=== PATIENT | female | born 2005 | race Two or more races ===

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

== ENCOUNTER 2024-01-18 18:08 | Emergency (ER) | payer BC, SELFPAY ==
[2024-01-18 18:15] VITALS: BP 105/64; PULSE 93; TEMP 36.5; O2SAT 96; BMI 22.3
--- OUTSIDE RECORDS SUMMARY | 2024-01-18 18:25 | XMS_ITS | CCD ---
Author Organization [facility] Care Team Providers Care Roll Contour Grinder Name Role Phone Shani Stern Unavailable Ami Mike Unavailable Lynne Pierson Attending Unavailable Lynne Pierson Admitting Unavailable Rivera Lawrence Primary Care Unavailable DO Rivera Lawrence Primary Care Provider NGUYEN Pierson Attending Provider Medications Current Medications Medication Drug Class(es) Dates Sig (Normalized) Sig (Original) amoxicillin 875 mg / clavulanate 125 mg oral tablet (2 sources) Penicillin-class Antibacterial Start: 01-16-2024 take 1 tablet by mouth every twelve hours Amoxicillin-Pot Clavulanate Active 1 TAB PO Every 12 hours 07 05January 16, 2024 12:00am brompheniramine maleate 0.4 mg/ml / dextromethorphan hydrobromide 2 mg/ml / pseudoephedrine hydrochloride 6 mg/ml oral solution (1 source) alpha-Adrenergic Agonist, Uncompetitive O-gjuqkz-J-aspartate Receptor Antagonist, Sigma-1 Agonist Start: 08-06-2022 take 10 mL by mouth every six hours Pseudoeph-Bromph en-DM 30-2-10 MG/5ML 10 mL Orally every 6 hours for 5 days Jul, Active fluticasone propionate 0.05 mg/actuat metered dose nasal spray (1 source) Corticosteroid Start: 08-06-2022 take 1 spray(s) nasal route once daily Flonase Allergy Relief 50 MCG/ACT 1 spray in each nostril Nasally Once a day for 14 day(s) Jul, Active polymyxin b 36542 unt/ml / trimethoprim 1 mg/ml ophthalmic solution (1 source) Dihydrofolate Reductase Inhibitor Antibacterial, Polymyxin-class Antibacterial Start: 08-06-2022 take 1 drop(s) into the eye(s) four times daily Polymyxin B-Trimethoprim 46514-0.1 UNIT/ML 1 drop into affected eye Ophthalmic Four times a day for 5 day(s) Jul, Active Problems Active Problems Problem Classification Problem Date Documented Date Episodic/Chronic Inflammation; infection of eye (except that caused by tuberculosis or sexually transmitteddisease) (1 source) Unspecified acute conjunctivitis, bilateral Episodic Other upper respiratory infections (3 sources) Streptococcal sore throat; Translations: [Strep pharyngitis] Episodic Skin and subcutaneous tissue infections (3 sources) Cutaneous abscess of left lower limb; Translations: [Abscess of left thigh] Onset: 01-16-2024 01-16-2024 Episodic Past or Other Problems Problem Classification Problem Date Documented Date Episodic/Chronic Administrative/social admission (1 source) Encounter for examination for participation in sport Onset: 01-27-2022 Resolved: 01-27-2022 Episodic Results Test Name Value Interpretation Reference Range Facil ity Gram Stainon 01-16-2024 Microscopic observation Gram stain Nom (Unsp spec) Gram Stain Result 1+ Gram Positive Cocci Rare White Blood Cells PERFORMED BY: [place] [address] PATHOLOGIST [facility] IGOR ELDRIDGE M.D. Normal [facility] Comment on above: Performed By: #### G S #### [address] Gram stain for investigation of transfusion reactionOrdered By: Lynne Pierson on 01-16-2024 Microscopic observation Gram stain Nom (Unsp spec) [facility] Vital Signs Date Time Vital Sign Value Performing Clinician Facility 01-16-2024 09:46-0400 Body height 157.48 cm [facility] 01-16-2024 09:46-0400 Body mass index (BMI) [Percentile] Per age and sex 58.9 % [facility] 01-16-2024 09:46-0400 Body mass index (BMI) [Ratio] 22.4 kg/m2 [facility] 01-16-2024 09:46-0400 Body temperature 98.2 [degF] [facility] 01-16-2024 09:46-0400 Body weight 55.48 kg [facility] 01-16-2024 09:46-0400 Diastolic blood pressure 71 mm[Hg] [facility] 01-16-2024 09:46-0400 Heart rate 90 /min [facility] 01-16-2024 09:46-0400 Respiratory rate 16 /min [facility] 01-16-2024 09:46-0400 SaO2% (BldA) [Mass fraction] 98 % [facility] 01-16-2024 09:46-0400 Systolic blood pressure 102 mm[Hg] [facility] 08-06-2022 16:55-0500 Body height 158.75 cm Ami Mike Other [facility] [place] Other 08-06-2022 16:55-0500 Body mass index (BMI) [Ratio] 22.1 kg/m2 Ami Mike Other [facility] [place] Other 08-06-2022 16:55-0500 Body temperature 97.7 [degF] Ami Mike Other [place] Other 08-06-2022 16:55-0500 Body weight 55.7 kg Ami Mike Other [facility] Other 08-06-2022 16:55-0500 Diastolic blood pressure 66 mm[Hg] Ami Mike Other [facility] Other 08-06-2022 16:55-0500 Respiratory rate 18 /min Ami Mike Other [facility] Other 08-06-2022 16:55-0500 SaO2% (BldA) [Mass fraction] 98 % Ami Mike Other [facility] Other 08-06-2022 16:55-0500 Systolic blood pressure 108 mm[Hg] Ami Mike Other [facility] Other 01-27-2022 16:20-0400 Body height 158.75 cm Shani Stern Other [facility] Other 01-27-2022 16:20-0400 Body mass index (BMI) [Ratio] 20.34 kg/m2 Shani Stern Other [facility] Other 01-27-2022 16:20-0400 Body temperature 98.5 [degF] Shani Stern Other [facility] Other 01-27-2022 16:20-0400 Body weight 51.26 kg Shani Stern Other [facility] Other 01-27-2022 16:20-0400 Diastolic blood pressure 67 mm[Hg] Shani Stern Other [facility] Other 01-27-2022 16:20-0400 Systolic blood pressure 107 mm[Hg] Shani Stern Other [facility] Other Encounters Encounter Date Encounter Type Care Provider Facility Start: 01-16-2024 End: 01-16-2024 Departed Referred DO Rivera Lawrence Work Phone: [facility] [place] Work Phone: Start: 01-16-2024 End: 01-16-2024 ambulatory Lynne Pierson [facility] Work Phone: Start: 01-16-2024 End: 01-16-2024 Patient encounter procedure [facility] [place] Work Phone: Start: 08-06-2022 End: 08-06-2022 ambulatory Ami Mike Other [facility] Other Start: 08-06-2022 Office outpatient vi sit 25 minutes Ami Mike [facility] Start: 01-27-2022 End: 01-27-2022 ambulatory Shani Leena Other [facility] [place] Other Start: 01-27-2022 Office outpatient vi sit 15 minutes Shani Leena [facility] Procedures Date Procedure Procedure Detail Performing Clinician Start: 01-16-2024 Investigation of transfusion reaction DO Rivera Lawrence Work Phone: Plan of Treatment Date Care Activity Detail Author Start: 01-17-2024 [facility] Bacteria identified in Unspecified specimen by Aerobe culture [facility] Bacteria identified in Unspecified specimen by Anaerobe culture [facility] Payers Date Payer Category Payer [facility] [id number] 2024 Self-pay [id number] Unknown [id number] [id number] [id number] Unknown [id number] Social History Date Type Detail Facility Unknown if ever smoked [facility] Other Sex Assigned At Sex Assigned At Bir th [facility] Other Start: 01-16-2024 Tobacco smoking status NHIS Never smoked tobacco (finding) [facility] Start: 2005 Sex Assigned At Female F [facility] Evaluation note 08-06-2022 Note Date & Type Note Facility 08-06-2022 Evaluation note Encounter Date Diagnosis Assessment Notes Jul, Acute bacterial conjunctivitis of both eyes (ICD-10 - H10.33) Discussed diagnosis with mother. Instructed mother to administer eye drops as prescribed, discussed proper administration. Advised mother patient is contagious until after 24 hours on antibiotic eye drops. Advised good hand hygiene and infection control, wash linens and bedding, do not touch eye directly with eye drop bottle, wipe off bottle after every use, do not share eye drop bottles. Apply cool compress to eye several times a day, clean eye with warm, moist cloth from inner to outer canthus. Eye symptoms should improve in 2-3 days with treatment, if no improvement follow up with PCP or eye doctor. Immediate eval if symptoms worsen, eye pain, vision changes, redness and swelling occur around the eye, headache, fever, N/V or any other concerning symptoms. Patient's mother verbalizes understanding and is agreeable to treatment plan Jul, Viral URI with cough (ICD-10 - J06.9) No testing performed today in office. Advised mother that will treat as viral URI. Supportive care as directed, increase fluids and rest, Tylenol/Motrin as directed, Bromfed as directed, rx of Flonase, cool mist humidifier, throat lozenges. Discussed infection control practices such as good hand washing and mask wearing. Patient to follow up with PCP if symptoms persist or worsen despite treatment. Immediate eval for SOB, difficulty, chest pain, fevers that do not break with antipyretic or any other concerning symptoms as reviewed on patient education handout. Mother verbalizes understanding and is agreeable to treatment plan. Patient left in stable condition [facility] Other Evaluation note 01-27-2022 Note Date & Type Note Facility 01-27-2022 Evaluation note Encounter Date Diagnosis Assessment Notes Jan, Sports physical (ICD-10 - Z02.5) [facility] Other Evaluation note Note Date & Type Note Facility Evaluation note No assessment information availa ble [facility] Work Phone: Evaluation note Note Date & Type Note Facility Evaluation note Diagnosis Onset Date Abscess of left thigh acute [facility] Work Phone: History general Narrative - Reported Note Date & Type Note Facility History general Narrative - Reported Type Medical History Broke right leg [facility] Other Chief Complaint and Reason for Visit Chief Complaint Abscess on back of l eft leg Chief Complaint Abscess on back of l eft leg L02.416 Reason for Visit Abscess of left thig h Advance Directives Advance Directive Response Recorded Date/ Time Advance Directives No April 23, 2017 7:36pm Summary Purpose Family History No Family History Records Found Additional Source Comments REASON FOR VISIT (unrecogniz ed section and content) [employer] PINK EYE H/A SORE THROAT CONGESTION Care Teams (unrecognized sec tion and content) Team Status: Active Member Role Status Dates Rivera Lawrence DO Primary Care Provider Active Team Status: Inactive Member Role Status Dates Rivera Lawrence DO Primary Care Provider Active Sta rt: January 16, 2024 End: January 16, 2024 Lynne Pierson APRN Attending Provider Active Start: January 16, 2024 End: January 16, 2024 Goals (unrecognized section and content) Goals may be documented in a n alternate section INFORMATION SOURCE (unrecogn ized section and content) DATE CREATED AUTHOR 01/17/2024 [facility] FOR RECORDS PERTAINING TO PATIENTS WHO ARE OR HAVE BEEN ENROLLED IN A CHEMICAL DEPENDENCY/SUBSTANCEABUSE PROGRAM, SOME INFORMATION MAY BE OMITTED. This clinical summary was aggregated from multiple sources. Caution should be exercised in using it in the provision of clinical care. This summary normalizes information from multiple sources, and as a consequence, information in this document may materially change the coding, format and clinical context of patient data. In addition, data may be omitted in some cases. CLINICAL DECISIONS SHOULD BE BASED ON THE PRIMARY CLINICAL RECORDS. [facility]. provides no warranty or guarantee of the accuracy or completeness of information in this document.
--- NOTE | 2024-01-18 18:31 | ED.SKABFB1 ---
HPI - Skin/Abscess/Foreign Bdy General Chief complaint: Skin/Abscess/Foreign Body Stated complaint: Abscess of foot Time Seen by Provider: 01/18/24 18:13 Source: patient Mode of arrival: walk-in History of Present Illness HPI narrative: Patient is a 18-year-old female who presents to the emergency Room for the evaluation of redness and swelling to the left left posterior thigh. She was seen at urgent care 2 days ago for this, she had an incision and drainage performed, culture obtained and was placed on Augmentin. She was not given any pain medications. She presents to the ER today with concern that the area is still red and swollen, she has had an increase in purulent drainage from the area and she was not sure if that was normal. She has had no fevers, vomiting. No concern for . Related Data Home Medications ?Medication ?Instructions ?Recorded ?Confirmed amoxicillin 875 mg-potassium tab 01/18/24 clavulanate 125 mg tablet Previous Rx's ?Medication ?Instructions ?Recorded cephalexin 500 mg capsule 500 mg PO Q8H 10 days #30 caps 01/18/24 hydrocodone 5 mg-acetaminophen 325 1 tab PO Q6H PRN pain 3 days #12 01/18/24 mg tablet tabs ketorolac 10 mg tablet 10 mg PO TID PRN pain #10 tabs 01/18/24 ondansetron 4 mg disintegrating 4 mg PO Q6H PRN nausea and 01/18/24 tablet vomiting #12 tabs sulfamethoxazole 800 1 tab PO BID 10 days #20 tabs 01/18/24 mg-trimethoprim 160 mg tablet (Bactrim DS) Allergies Allergy/AdvReac Type Severity Reaction Status Date / Time No Known Drug Allergies Allergy Verified 01/18/24 18:19 Review of Systems ROS Constitutional Denies: fever or chills Ears, nose, mouth, and throat Denies: throat pain or nasal congestion Respiratory Denies: shortness of breath Gastrointestinal Denies: abdominal pain, nausea or vomiting Integumentary/Breast Reports: skin pain, skin tenderness and skin swelling; Denies: rash Hematologic/Lymphatic Denies: easy bruising or easy bleeding Exam Narrative Exam Narrative: Gen.: Awake, alert, in no distress Head: Normocephalic, atraumatic ENT: Moist mucous membranes Respiratory: No respiratory distress Extremities: Moves extremities equally Psych: Normal mood and affect Neuro: No focal neuro deficit Skin: Warm, dry, intact; Cellulitis to the left posterior thigh with no circumferential redness or red streaking. 3 cm central area that is very indurated, no palpable fluctuance noted. Open area in the center is black with purulent drainage. Constitutional Vital Signs, click to edit/add: Last Vital Signs Temp 97.7 F 01/18/24 18:15 Pulse 93 H 01/18/24 18:15 Resp 16 01/18/24 18:15 BP 105/64 01/18/24 18:15 Pulse Ox 96 01/18/24 18:15 O2 Del Method Room Air 01/18/24 18:15 Course Vital Signs Vital signs: Vital Signs Temperature 97.7 F 01/18/24 18:15 Pulse Rate 93 H 01/18/24 18:15 Respiratory Rate 16 01/18/24 18:15 Blood Pressure 105/64 01/18/24 18:15 Pulse Oximetry 96 01/18/24 18:15 Oxygen Delivery Method Room Air 01/18/24 18:15 Temperature 97.7 F 01/18/24 18:15 Pulse Rate 93 H 01/18/24 18:15 Respiratory Rate 16 01/18/24 18:15 Blood Pressure 105/64 01/18/24 18:15 Pulse Oximetry 96 01/18/24 18:15 Oxygen Delivery Method Room Air 01/18/24 18:15 MDM - Skin/Abscess/Foreign Bdy MDM Narrative Medical decision making narrative: The abscess is open and draining, patient was given education and reassurance that this is normal and encouraged. She should continue warm compresses to the area. Her Augmentin should be stopped as it has no MRSA coverage and is not the standard of care. Patient will be placed on Keflex, Bactrim, she was not given any analgesics from urgent care. She was given a short course of pain medication and anti-inflammatories. Zofran as needed. She was also counseled that the redness to the thigh may worsen before it gets better with the new antibiotic therapy. She is hemodynamically stable with no systemic complaints at this time. Follow-up PCP and return to the ER if symptoms change or worsen Medical Records Attestation: I reviewed the patient's medical records. Discharge Plan Discharge Stand Alone Forms: Portal Instructions Chief Complaint: Skin/Abscess/Foreign Body Clinical Impression: Cellulitis, Abscess of skin or subcutaneous tissue Patient Disposition: Home, Self-Care Time of Disposition Decision: 18:27 Condition: Good Prescriptions / Home Meds: New sulfamethoxazole-trimethoprim [Bactrim DS] 800-160 mg tablet 1 tab PO BID 10 Days Qty: 20 0RF hydrocodone-acetaminophen 5-325 mg tablet 1 tab PO Q6H PRN (Reason: pain) 3 Days Qty: 12 0RF Rx Instructions: DX: L02.91 ketorolac 10 mg tablet 10 mg PO TID PRN (Reason: pain) Qty: 10 0RF cephalexin 500 mg capsule 500 mg PO Q8H 10 Days Qty: 30 0RF ondansetron 4 mg tablet,disintegrating 4 mg PO Q6H PRN (Reason: nausea and vomiting) Qty: 12 0RF No Action amoxicillin-pot clavulanate 875-125 mg tablet Print Language: [place] Citizen Instructions: Cellulitis (ED), Abscess Follow-up (ED), Warm Compress or Soak (ED) Additional Instructions: Please stop the Augmentin (amoxicillin-clavulanate) - take all 10 days of cephalexin and Bactrim; please use warm compresses Referrals: CATY FREY [Primary Care Provider] - 1 week
[2024-01-18] MEDS: KETOROLAC TROMETHAMINE 10 MG TABLET PO (18:36)
[2024-01-18] MEDS: HYDROCODONE/ACET 5-325 MG TABLET 1 TAB PO (18:36)
== END 2024-01-18 18:47 | disposition home or self-care (01) ==
PROVIDERS: Emergency Provider Emergency Medicine; PCP Internal Medicine
DX: L03.116 Cellulitis of left lower limb (principal); L02.416 Cutaneous abscess of left lower limb
CPT/HCPCS: 99283